=== PATIENT | female | born 1970 | race Caucasian/White ===

== ENCOUNTER 2019-09-15 08:15 | Inpatient (IN) | payer OTHER ==
[2019-09-30] MEDS ORDERED: Scopolamine 1.5 MG Transdermal Patch TOP SCH (06:15)
[2019-09-30] MEDS ORDERED: Acetaminophen 500 MG Tab PO ONE (06:15)
[2019-09-30] MEDS ORDERED: Celecoxib 200 MG Cap PO ONE (06:15)
[2019-09-30] MEDS ORDERED: Gabapentin 300 MG Cap PO ONE (06:15)
[2019-09-30] MEDS: Albuterol/Ipratropium 3.0-0.5 MG/3 ML Neb Soln NEB ONE ×2 (06:23→07:05)
[2019-09-30] MEDS ORDERED: Dextrose 5%-Lactated Ringers 1,000 ML IV SCH (06:30)
[2019-09-30] MEDS ORDERED: cefOXitin 2 GM Vial ONE (06:57)
[2019-09-30] MEDS ORDERED: Glycopyrrolate 0.2 MG/ML 5 ML MDV ONE (06:59)
[2019-09-30] MEDS ORDERED: Ondansetron 4 MG/2 ML SDV ONE (06:59)
[2019-09-30] MEDS ORDERED: fentaNYL 250 MCG/5 ML SDV ONE (06:59)
[2019-09-30] MEDS ORDERED: Succinylcholine 200 MG/10 ML MDV ONE (06:59)
[2019-09-30] MEDS ORDERED: Neostigmine Methylsulfate 1 MG/ML 5 ML Syringe ONE (06:59)
[2019-09-30] MEDS ORDERED: Rocuronium 50 MG/5 ML Vial ONE (06:59)
[2019-09-30] MEDS ORDERED: Dexamethasone 4 MG/ML SDV ONE (06:59)
[2019-09-30] MEDS ORDERED: Propofol 200 MG/20 ML SDV ONE (06:59)
[2019-09-30] MEDS ORDERED: cefOXitin 2 GM in Sodium Chloride 0.9% 50 ML IV ONE (07:45)
[2019-09-30] MEDS ORDERED: MAGNESIUM SULFATE IV ONE (08:00)
[2019-09-30] MEDS ORDERED: Ketamine 50 MG in Sodium Chloride 0.9% 49.5 ML IV SCH (08:00)
[2019-09-30] MEDS ORDERED: SODIUM CHLORIDE 0.9% IV ONE (08:00)
[2019-09-30] MEDS ORDERED: Ketamine 500 MG/5 ML MDV IV SCH (08:00)
[2019-09-30] MEDS ORDERED: hydrOXYzine HCL 100 MG/2 ML SDV IM ONE (09:13)
[2019-09-30] MEDS ORDERED: Meperidine PF 100 MG/ML Syringe IM ONE (09:14)
[2019-09-30] MEDS ORDERED: Metoclopramide 10 MG/2 ML SDV IVPUSH PRN (11:05)
[2019-09-30] MEDS ORDERED: HYDROmorphone 1 MG/ML Syringe IV PRN (11:05)
[2019-09-30] MEDS ORDERED: diphenhydrAMINE 50 MG/ML SDV IVPUSH PRN (11:05)
[2019-09-30] MEDS ORDERED: HYDROmorphone 0.5 MG/0.5 ML Syringe IVPUSH PRN (11:05)
[2019-09-30] MEDS ORDERED: Calcium Gluconate 10% 1 GM/10 ML SDV IVPUSH PRN (11:05)
[2019-09-30] MEDS ORDERED: hydrOXYzine HCL 100 MG/2 ML SDV IM PRN (11:05)
[2019-09-30] MEDS ORDERED: Ondansetron 4 MG/2 ML SDV IVPUSH PRN (11:05)
[2019-09-30] MEDS ORDERED: Labetalol 20 MG/4 ML Syringe IVPUSH PRN (11:05)
[2019-09-30] MEDS ORDERED: Cyclobenzaprine 10 MG Tab PO PRN (11:05)
[2019-09-30] MEDS ORDERED: oxyCODONE 5 MG Tab PO PRN (11:05)
[2019-09-30] MEDS ORDERED: Albuterol/Ipratropium 3.0-0.5 MG/3 ML Neb Soln INH PRN (11:05)
[2019-09-30] MEDS ORDERED: Pantoprazole 40 MG Vial IVPUSH SCH (14:00)
[2019-09-30] MEDS ORDERED: Acetaminophen 500 MG Tab PO PRN (14:00)
[2019-09-30] MEDS: Dextrose 5%-Lactated Ringers 1,000 ML IV SCH (14:18)
[2019-09-30] MEDS: Gabapentin 250 MG/5 ML Solution ML 470 ML Bottle PO SCH ×2 (14:36→20:00)
[2019-09-30] MEDS: cefOXitin 2 GM in Sodium Chloride 0.9% 50 ML IV SCH ×2 (14:36→19:57)
[2019-09-30] MEDS: Acetaminophen 500 MG Tab PO SCH ×2 (14:36→23:58)
[2019-09-30] MEDS: Albuterol/Ipratropium 3.0-0.5 MG/3 ML Neb Soln INH SCH ×2 (15:00→20:00)
[2019-09-30] MEDS ORDERED: MVI, Adult with Vitamin K 10 ML, Thiamine 200 MG, Chromium/Copper/Mang/Selen/Zn 1 ML in... IV SCH ×4 (16:00)
[2019-09-30] MEDS: Heparin Sodium 5,000 Units/ML Vial SUBCUT SCH (18:35)
[2019-10-01] MEDS: Dextrose 5%-Lactated Ringers 1,000 ML IV SCH (01:22)
[2019-10-01] MEDS ORDERED: Iopamidol 612 MG/ML 50 ML SDV PO STA (01:28)
[2019-10-01] MEDS: cefOXitin 2 GM in Sodium Chloride 0.9% 50 ML IV SCH (02:28)
[2019-10-01] MEDS: Heparin Sodium 5,000 Units/ML Vial SUBCUT SCH ×2 (03:48→16:36)
[2019-10-01] MEDS: Acetaminophen 500 MG Tab PO SCH ×3 (04:59→22:23)
[2019-10-01] MEDS: Albuterol/Ipratropium 3.0-0.5 MG/3 ML Neb Soln INH SCH ×4 (07:57→23:09)
[2019-10-01] MEDS ORDERED: Ondansetron 4 MG Tab.DIS PO PRN (08:23)
--- NOTE | 2019-10-01 09:08 | CR ---
[facility] HISTORY: Postbariatric surgery FINDINGS: Patient swallowed water-soluble contrast in an upright position. Upright views of the abdomen show no evidence of extravasation or obstruction. There is a left upper quadrant surgical drain. IMPRESSION: Status post bariatric surgery No extravasation or obstruction seen
[2019-10-01] MEDS: Celecoxib 200 MG Cap PO SCH ×2 (09:38→20:56)
[2019-10-01] MEDS: Lisinopril 5 MG Tab PO SCH (09:39)
[2019-10-01] MEDS: SCOPOLAMINE PATCH CHECK TOP SCH (09:39)
[2019-10-01] MEDS: Gabapentin 250 MG/5 ML Solution ML 470 ML Bottle PO SCH ×3 (09:42→21:06)
[2019-10-01] MEDS ORDERED: Dextrose 5%-Lactated Ringers 1,000 ML IV SCH (10:00)
--- NOTE | 2019-10-01 10:58 | PN ---
DATE OF SERVICE: 10/01/2019 SUBJECTIVE: Klaudia is postoperative day #1. Her upper GI was normal. Pain is controlled. She has been up, ambulating. She got a little dizzy on the magnesium, so this was discontinued and then she had blurred vision, so scopolamine patch was discontinued. REVIEW OF SYSTEMS: Remainder of review of systems negative for any pertinent positives and negatives. OBJECTIVE: GENERAL: Klaudia Sidhu is a pleasant 49-year-old female. She is alert and orientated. VITAL SIGNS: TPR is 97.1, 61, 16, blood pressure 129/65. HEENT: Negative. NECK: Supple. HEART: Regular rate and rhythm. LUNGS: Clear. ABDOMEN: Dressings dry and intact. Abdominal binder is on. EXTREMITIES: Without peripheral edema. ASSESSMENT: Laparoscopic sleeve gastrectomy, liver biopsy, repair of diaphragmatic hernia, and excision of mediastinal lipoma for morbid obesity, hepatomegaly, diaphragmatic hernia. Date of surgery: 09/30/2019. Surgeon: Juan Antonio Petersen MD. PLAN: 1. Decrease IV to 100 mL per hour. 2. Step 2 gastric bypass diet without cereal. 3. Communication order: 3 med cups per hour, 1 every 20 minutes. 4. Dressing off, may shower. 5. Good pulmonary toilet. 6. Zofran ODT 4 mg every 4 hours p.r.n. nausea. 7. We will evaluate p.r.n. or in a.m. Stefanie Rivas PA-C /[id number]
[2019-10-01] MEDS ORDERED: Pantoprazole 40 MG Delayed-Release Granules 1 Packet PO SCH (14:00)
[2019-10-01] MEDS ORDERED: MVI, Adult with Vitamin K 10 ML, Thiamine 200 MG, Chromium/Copper/Mang/Selen/Zn 1 ML in... IV SCH ×4 (16:00)
[2019-10-02] MEDS: Heparin Sodium 5,000 Units/ML Vial SUBCUT SCH (05:21)
[2019-10-02] MEDS: Acetaminophen 500 MG Tab PO SCH (06:21)
[2019-10-02] MEDS: Albuterol/Ipratropium 3.0-0.5 MG/3 ML Neb Soln INH SCH (07:02)
[2019-10-02] MEDS: Celecoxib 200 MG Cap PO SCH (08:44)
[2019-10-02] MEDS: Lisinopril 5 MG Tab PO SCH (08:45)
[2019-10-02] MEDS: SCOPOLAMINE PATCH CHECK TOP SCH (08:47)
[2019-10-02] MEDS: Gabapentin 250 MG/5 ML Solution ML 470 ML Bottle PO SCH (08:47)
--- NOTE | 2019-10-02 08:47 | DISCH ---
ADMISSION DIAGNOSES: 1. Morbid obesity. 2. BMI 52. 3. Chronic kidney disease stage 3. 4. Dyslipidemia. 5. Hypertension. 6. Iron deficiency anemia. 7. Essential hypertension. 8. Migraine headaches. 9. Depression. 10.Attention deficit hyperactivity disorder. DISCHARGE DIAGNOSES: Laparoscopic sleeve gastrectomy, liver biopsy, repair of diaphragmatic hernia, and excision of mediastinal lipoma for morbid obesity, hepatomegaly, diaphragmatic hernia. Date of surgery: 09/30/2019. Surgeon: Juan Antonio Petersen MD. HISTORY: Klaudia Sidhu is a pleasant 49-year-old female with longstanding history of morbid obesity and increasing comorbidities. After preoperative evaluation and discussion of possible risks and possible complications, she wished to proceed with surgical procedure. HOSPITAL COURSE: Klaudia had her surgery on 09/30/2019. She had no operative complications. On postoperative day #1, she was started on step 2 gastric bypass without cereal. Her IV was saline locked. Her activity was good. She received dietary instruction. Pain was well managed and she was able to be discharged to home on postoperative day #2 on 10/02/2019. PHYSICAL EXAMINATION: GENERAL: Klaudia Sidhu is a 49-year-old female. VITAL SIGNS: Height is 5 feet 2 inches, weight is 285 pounds, BMI is 52.1. TPR is 97.9, 60, 18, blood pressure 115/57. HEENT: Negative. NECK: Supple. HEART: Regular rate and rhythm. LUNGS: Clear. ABDOMEN: Sutures intact. Incisions look good. 4x4s placed over JOSEFINA drain site. Abdominal binder is on. EXTREMITIES: Without peripheral edema. DISPOSITION: Discharged to home. CONDITION: Stable and improving. FOLLOWUP APPOINTMENT: On 10/07/2019 at 10:15 a.m. with Stefanie Rivas PA-C, appointment to be at [place], [place]. HOME MEDICATIONS: 1. Tylenol 1000 mg every 8 hours scheduled for 2 weeks. 2. Celebrex 200 mg oral daily, #14. 3. Zofran ODT 4 mg oral q.4 hours p.r.n. nausea. 4. She is to continue taking lisinopril 5 mg daily and to discontinue taking all vitamins and supplements until her clinic appointment. DIET: Step 2 gastric bypass diet with no cereal until 10/28/2019. ACTIVITY: No lifting over 10 pounds for 2 weeks. Other activity: Walk at least 6 times daily inside your home. Driving after discharge: Do not drive for 1 week. Shower/bathing: May shower. DISCHARGE INSTRUCTIONS: Notify provider if any fever, increased pain, nausea, or vomiting. Keep site clean and dry. Wear abdominal binder for 2 weeks and then as tolerated. SPECIAL INSTRUCTIONS: Use incentive spirometer 10 times every hour while awake for 1 week. Keep a diary of oral intake, protein, and liquids.
[2019-10-02] MEDS ORDERED: Cyanocobalamin (Vitamin B12) 1,000 MCG/ML SDV IM ONE (09:00)
--- NOTE | 2019-10-08 15:06 | OR ---
DATE OF PROCEDURE: 09/30/2019 SURGEON: Juan Antonio Petersen MD PREOPERATIVE DIAGNOSIS: Morbid obesity. POSTOPERATIVE DIAGNOSES: 1. Morbid obesity. 2. Marked hepatomegaly. 3. Paraesophageal diaphragmatic hernia. 4. Mediastinal lipoma. OPERATIVE PROCEDURES: 1. Laparoscopic sleeve gastrectomy (02684). 2. Samuel-Cut needle liver biopsy (61828). 3. Repair of paraesophageal diaphragmatic hernia (36042). 4. Excision of mediastinal lipoma (57889). ANESTHESIA: General. QUARTZ ORIENTATOR: Stefanie Rivas PA-C and ALBAN French2. INDICATIONS FOR PROCEDURE: This is a 49-year-old female presenting with longstanding morbid obesity and increasingly significant comorbidities. After preoperative evaluation and discussion, she wished to proceed with a sleeve gastrectomy. Potential risks including bleeding, infection, leaks from the gastrectomy staple line, as well as possibility of cardiopulmonary, septic, or hemorrhagic complications leading to were discussed, and the patient wishes to proceed. DETAILS OF PROCEDURE: The patient was taken to the operating room, and after general endotracheal anesthesia was induced, she was placed in a lithotomy position and then the abdomen prepped and draped. At 15 cm inferior and 5 cm left of the xiphoid process, a transverse incision was made and the peritoneal cavity entered under direct vision with an Optiview trocar inflated 15 mmHg pressure with CO2. Laparoscope was then reinserted. No underlying trocar insertion site injuries were seen. Following this, 5 additional trocars were placed across the upper and mid abdomen. Bilateral transversus abdominis plane blocks were placed. The patient was noted to have marked hepatomegaly with liver being grossly fatty infiltrated and Samuel-Cut needle biopsies were obtained from left lobe of the liver, and minimal bleeding from biopsy sites was controlled with electrocautery. At this point, the liver was retracted anteriorly. The patient was noted to have significant paraesophageal diaphragmatic hernia containing some perigastric fat and gastric fundus and the edge of the omentum. This was reduced and the peritoneum overlying incised and reflected downward. During the course of the dissection, a mediastinal lipoma was encountered, and this was excised and sent as a separate specimen. The diaphragmatic hernia was then repaired anteriorly with sutures of 0 Ethibond sutures reinforced with PTFE pledgets. At this point, beginning in the mid to greater curvature, the omentum was divided away from the gastric edge with Harmonic Scalpel. This was continued up to the short gastric vessels, including the highest and posterior short gastric vessels. The fundus was then dissected away from the left gunnar of the diaphragm until that area was well skeletonized. The omentum was then divided distally down to the point 2 cm proximal to the pylorus. The area posterior to the stomach was inspected, and some minor adhesions were taken down to allow adequate subsequent gastrectomy. Beginning 2 cm proximal to the pylorus, the anterior aspect of the stomach was marked off with electrocautery for the initial staple lines. Care was taken to avoid overtightening of the area around the incisura angularis. The 1st three firings of the resection were accomplished with unreinforced GURPREET black loads. At that point then, a 32-Mohawk suction tube was placed per Anesthesia orally, then positioned along the lesser curvature of stomach and from there into the antrum. This was pulled up against the lesser curvature, where suction was applied. Remainder of the gastrectomy was then accomplished with combination of reinforced black and purple loads, and the specimen was then displaced into the left lower quadrant. The staple line was inspected and found to be satisfactory in all areas. Fibrin sealant was then applied to the length of the staple line with emphasis on the area of the esophagogastric junction. Omentum was then pulled up into those areas and being held in place for a few seconds until it was fixed by means of the fibrin sealant. With the duodenum being compressed, the intragastric tube was then taken off suction, air was injected in the tube, distending the remaining stomach while it was submerged with an antibiotic-containing saline solution. No air leaks were noted and likewise no bleeding was noted along the staple line. At this point, the surgical specimen was delivered through the left lateral trocar site. A single Cheo-Aguilar drain was then placed along the proximal end of the gastrectomy staple line and from there into the splenic fossa. The trocars were then sequentially removed and the peritoneal cavity deflated. Incisions were closed with 4-0 Vicryl skin stitch and drain affixed with a 4-0 Vicryl stitch as well. The patient was taken to the recovery room in satisfactory condition. Physician wellness assistant, Stefanie Rivas, played an essential role in assisting in this case, helping to position the patient, retract structures as needed, as well as suturing and cutting sutures when indicated. Her presence improved patient safety and decreased operative time. Juan Antonio Petersen MD /[id number]
== END 2019-10-02 10:40 | disposition home or self-care (01) | DRG 621 ==
LOC: JP.MS 09-30 05:58 → JP.SDS 09-30 05:58 → EDSTATUS 09-30 07:15 → JP.2SS 09-30 09:30
PROVIDERS: ADMIT Surgery; ATTEND Surgery
PROC: 0DB60Z3 Excision of Stomach, Open Approach, Vertical (ICD-10-PCS; principal; 2019-09-30)
PROC: 0FB20ZX Excision of Left Lobe Liver, Open Approach, Diagnostic (ICD-10-PCS; 2019-09-30)
PROC: 0BQT0ZZ Repair Diaphragm, Open Approach (ICD-10-PCS; 2019-09-30)
PROC: 0JB60ZZ Excision of Chest Subcutaneous Tissue and Fascia, Open Approach (ICD-10-PCS; 2019-09-30)
DX: E66.01 Morbid (severe) obesity due to excess calories (principal); Z68.43 Body mass index [BMI] 50.0-59.9, adult; N18.3 Chronic kidney disease, stage 3 (moderate); E78.5 Hyperlipidemia, unspecified; D50.9 Iron deficiency anemia, unspecified; I12.9 Hypertensive chronic kidney disease with stage 1 through stage 4 chronic kidney disease, or unspecified chronic kidney disease; G43.909 Migraine, unspecified, not intractable, without status migrainosus; F32.9 Major depressive disorder, single episode, unspecified; F90.9 Attention-deficit hyperactivity disorder, unspecified type; R16.0 Hepatomegaly, not elsewhere classified; K44.9 Diaphragmatic hernia without obstruction or gangrene; D17.4 Benign lipomatous neoplasm of intrathoracic organs; Z90.710 Acquired absence of both cervix and uterus
CPT/HCPCS: 36415; 74240; 74240-26; 74246-26; 82962; 86850; 86900; 86901; 88304; 88307; 88313; 88342; 94640; A9270-GY; C9113; J0171; J0330; J0694; J1100; J1644; J2175; J2405; J2704; J2710; J2795; J3010; J3410; J3411; J3420; J3475; J3490; J7050; J7121; J7620-GY; Q9967